=== PATIENT | female | born 1960 | race Caucasian/White ===

== ENCOUNTER 2021-08-11 12:30 | Inpatient (IN) | payer MEDICAID, MEDICARE ==
[2021-08-11] MEDS ORDERED: Ondansetron PF 4 MG/2 ML Vial ONE (13:38)
[2021-08-11 14:27] LABS: #Basophils 0.1 10x3/uL (0.0-0.2); #Monocytes 0.8 10x3/uL (0.0-1.1); #Neutrophils 6.3 10x3/uL (1.5-8.4); %Basophils 0.6 % (0.0-2.0); %Eosinophils 0.1 % (0.0-6.0); %Lymphocytes 27.7 % (18.0-47.0); %Monocytes 8.4 % (0.0-10.0); Hemoglobin 13.6 g/dL (12.0-15.5); Mean Corpuscular HGB CONC 35.2 g/dL (32.0-36.0); Mean Corpuscular Hemoglobin 33.6 pg (27.0-33.0); Mean Corpuscular Volume 95.3 fl (81.6-98.3); Mean Platelet Volume 10.1 fl (7.4-10.4); Platelet Count 373 10x3/uL (150-450); RBC Distribution Width 12.2 % (11.5-14.5); Red Blood Cell (RBC) Count 4.05 10x6/uL (3.90-5.03)
[2021-08-11 14:44] LABS: ALT (SGPT) 26 U/L (8-55); AST (SGOT) 22 U/L (5-34); Albumin 4.4 g/dL (3.4-4.8); Alkaline Phosphatase 58 U/L (40-110); Anion Gap 19 mmol/L (10-20); BUN (Urea Nitrogen) 16 mg/dL (9.8-20.1); Bilirubin, Total 0.7 mg/dL (0.2-1.2); Calc. Creatinine Clearance 0 mL/min (70-130); Calcium 9.7 mg/dL (7.8-10.44); Carbon Dioxide 21 mmol/L (23-31); Chloride 103 mmol/L (98-107); Globulin 2.9 g/dL (2.4-3.5); Glucose 103 mg/dL (80-115); Potassium 3.6 mmol/L (3.5-5.1); Protein, Total 7.3 g/dL (5.8-8.1); Sodium 139 mmol/L (136-145)
[2021-08-11 15:09] LABS: SARS-CoV-2 NAA Rapid Test Not Detected (NotDetected)
[2021-08-11 16:15] LABS: Bilirubin 1+ (Negative); Blood, Urine Negative (Negative); Clarity Clear (Clear); Glucose, Urine (Dipstick) Normal (Negative); Ketone, Urine 150 mg/dL (Negative); Leukocyte 25 (Negative); Nitrite Negative (Negative); Protein, Urine (Dipstick) 30 mg/dl (Neg-Trace)
[2021-08-11 16:33] LABS: Mucous/LPF 1+ LPF (<2+)
[2021-08-11] MEDS ORDERED: Acetaminophen 325 MG TAB PO PRN (18:11)
[2021-08-11] MEDS ORDERED: Albuterol Sulfate 2.5 mg/3 ml Neb NEB PRN ×2 (18:24→18:53)
[2021-08-11] MEDS ORDERED: Bisacodyl 10 MG SUPP PR PRN (18:24)
[2021-08-11] MEDS ORDERED: Meropenem 1 GM in Sodium Chloride 0.9% 100 ML IVPB SCH ×2 (19:00→22:00)
[2021-08-11 20:00] VITALS: BMI 33.0
[2021-08-11] MEDS: Dextrose 5 %-0.45 % NaCl 1,000 ML IV SCH (20:38)
[2021-08-11] MEDS: Atorvastatin Calcium 20 MG TAB PO SCH (20:38)
[2021-08-11] MEDS: Acetaminophen 325 MG TAB PO PRN (20:39)
[2021-08-11] MEDS ORDERED: CRANBERRY PO SCH (21:00)
[2021-08-11] MEDS ORDERED: [UNRECOGNIZED DRUG - OTHER] PO SCH (21:00)
[2021-08-11] MEDS ORDERED: ASCORBIC ACID PO SCH (21:00)
[2021-08-11] MEDS ORDERED: Melatonin 3 MG TAB PO PRN (22:28)
[2021-08-11] MEDS ORDERED: Metoprolol Tartrate 50 MG TAB PO SCH (22:30)
[2021-08-12] MEDS: traMADol HCl 50 MG TAB PO PRN ×3 (01:08→18:21)
[2021-08-12] MEDS ORDERED: Fentanyl 100 MCG/2 ML VIAL SLOW IVP SCH (02:30)
[2021-08-12] MEDS: Ondansetron PF 4 MG/2 ML Vial IVP PRN ×4 (02:31→19:15)
[2021-08-12] MEDS: Meropenem 1 GM in Sodium Chloride 0.9% 100 ML IVPB SCH ×2 (05:56→18:30)
[2021-08-12] MEDS: Acetaminophen 325 MG TAB PO PRN (06:06)
[2021-08-12 07:25] LABS: #Monocytes 0.9 10x3/uL (0.0-1.1); #Neutrophils 5.2 10x3/uL (1.5-8.4); %Basophils 0.5 % (0.0-2.0); %Eosinophils 0.3 % (0.0-6.0); %Lymphocytes 29.2 % (18.0-47.0); %Monocytes 9.9 % (0.0-10.0); %Neutrophils 59.9 % (40.0-75.0); Mean Corpuscular HGB CONC 34.9 g/dL (32.0-36.0); Mean Corpuscular Hemoglobin 33.7 pg (27.0-33.0); Mean Corpuscular Volume 96.4 fl (81.6-98.3); Mean Platelet Volume 10.1 fl (7.4-10.4); RBC Distribution Width 12.4 % (11.5-14.5); Red Blood Cell (RBC) Count 3.86 10x6/uL (3.90-5.03); White Blood Cell (WBC) Count 8.6 10x3/uL (3.5-10.5)
[2021-08-12 07:26] LABS: Platelet Count 324 10x3/uL (150-450)
[2021-08-12] MEDS: Mometasone/Formoterol 200/5 60 PUFF INH SCH ×2 (07:33→17:36)
[2021-08-12 07:43] LABS: Anion Gap 14 mmol/L (10-20); BUN (Urea Nitrogen) 10 mg/dL (9.8-20.1); Calc. Creatinine Clearance 101 mL/min (70-130); Calcium 8.8 mg/dL (7.8-10.44); Carbon Dioxide 23 mmol/L (23-31); Chloride 105 mmol/L (98-107); Glucose 122 mg/dL (80-115); Potassium 3.3 mmol/L (3.5-5.1); Sodium 139 mmol/L (136-145)
[2021-08-12] MEDS ORDERED: [UNRECOGNIZED DRUG - OTHER] PO SCH (09:00)
[2021-08-12] MEDS ORDERED: Potassium Chloride 20 MEQ TAB PO SCH (09:00)
[2021-08-12] MEDS ORDERED: GLUCOS SUL PO SCH (09:00)
[2021-08-12] MEDS ORDERED: Metoprolol Tartrate 50 MG TAB PO SCH ×2 (09:00→21:00)
[2021-08-12] MEDS ORDERED: Promethazine HCl 12.5 MG in Sodium Chloride 0.9% 50 ML IVPB PRN (09:46)
[2021-08-12] MEDS: Dextrose 5 %-0.45 % NaCl 1,000 ML IV SCH (10:02)
[2021-08-12] MEDS ORDERED: Morphine 4 MG/ML VIAL SLOW IVP PRN (10:18)
[2021-08-12] MEDS: Aspirin 81 mg Enteric Coated Tablet PO SCH (10:52)
[2021-08-12] MEDS: Metoprolol Tartrate 25 MG TAB PO SCH ×4 (10:52→22:39)
[2021-08-12] MEDS: Montelukast Sodium 10 mg Tablet PO SCH (10:52)
[2021-08-12] MEDS: Enoxaparin Sodium 30 MG/0.3 ML SYRINGE SC SCH (11:16)
[2021-08-12] MEDS ORDERED: Metoprolol Tartrate 5 MG/5 ML VIAL IVP PRN (13:05)
[2021-08-12] MEDS ORDERED: Piperacillin/Tazobactam 3.375 GM in Sodium Chloride 0.9% 100 ML IVPB SCH ×2 (16:00→18:00)
[2021-08-12] MEDS ORDERED: Ampicillin/Sulbactam 3 GM in Sodium Chloride 0.9% 100 ML IVPB SCH (17:00)
[2021-08-12] MEDS: Piperacillin/Tazobactam 3.375 GM in Sodium Chloride 0.9% 100 ML IVPB SCH (21:14)
[2021-08-12] MEDS: ALPRAZolam 0.5 MG TAB PO SCH (21:18)
[2021-08-12] MEDS: Atorvastatin Calcium 20 MG TAB PO SCH (21:18)
[2021-08-12] MEDS: traZODone HCl 50 MG TAB PO SCH (21:18)
[2021-08-12] MEDS: Pregabalin 75 MG CAP PO SCH (21:19)
[2021-08-13] MEDS: Dextrose 5 %-0.45 % NaCl 1,000 ML IV SCH ×2 (01:08→10:54)
[2021-08-13] MEDS: Piperacillin/Tazobactam 3.375 GM in Sodium Chloride 0.9% 100 ML IVPB SCH ×3 (05:11→21:57)
[2021-08-13] MEDS: ALPRAZolam 0.5 MG TAB PO SCH ×2 (07:51→22:00)
[2021-08-13] MEDS: Enoxaparin Sodium 30 MG/0.3 ML SYRINGE SC SCH (07:51)
[2021-08-13] MEDS: Fish Oil 1,000 MG CAP PO SCH (07:51)
[2021-08-13] MEDS: Metoprolol Tartrate 25 MG TAB PO SCH ×2 (07:52→22:07)
[2021-08-13] MEDS: traZODone HCl 50 MG TAB PO SCH ×2 (07:52→23:00)
[2021-08-13] MEDS: Aspirin 81 mg Enteric Coated Tablet PO SCH (07:53)
[2021-08-13] MEDS: Montelukast Sodium 10 mg Tablet PO SCH (07:53)
[2021-08-13] MEDS: Mometasone/Formoterol 200/5 60 PUFF INH SCH ×2 (07:53→19:41)
[2021-08-13] MEDS ORDERED: hydrALAZINE 20 MG/ML VIAL SLOW IVP PRN (07:54)
[2021-08-13] MEDS: Polyethylene Glycol 3350 17 GM Packet PO PRN (07:58)
[2021-08-13] MEDS: traMADol HCl 50 MG TAB PO PRN (10:44)
[2021-08-13] MEDS: Acetaminophen 325 MG TAB PO PRN ×2 (14:24→22:15)
[2021-08-13] MEDS: Pregabalin 75 MG CAP PO SCH (22:00)
[2021-08-13] MEDS: Atorvastatin Calcium 20 MG TAB PO SCH (22:07)
[2021-08-14] MEDS: Piperacillin/Tazobactam 3.375 GM in Sodium Chloride 0.9% 100 ML IVPB SCH ×3 (05:10→20:35)
[2021-08-14] MEDS: Mometasone/Formoterol 200/5 60 PUFF INH SCH ×2 (08:15→19:06)
[2021-08-14] MEDS: Fish Oil 1,000 MG CAP PO SCH (08:53)
[2021-08-14] MEDS: traMADol HCl 50 MG TAB PO PRN ×2 (08:53→18:33)
[2021-08-14] MEDS: Aspirin 81 mg Enteric Coated Tablet PO SCH (08:54)
[2021-08-14] MEDS: Montelukast Sodium 10 mg Tablet PO SCH (08:54)
[2021-08-14] MEDS: ALPRAZolam 0.5 MG TAB PO SCH ×2 (08:54→20:37)
[2021-08-14] MEDS: Enoxaparin Sodium 30 MG/0.3 ML SYRINGE SC SCH (08:55)
[2021-08-14] MEDS: Metoprolol Tartrate 25 MG TAB PO SCH ×2 (08:55→20:40)
[2021-08-14] MEDS: traZODone HCl 50 MG TAB PO SCH ×2 (08:57→20:38)
[2021-08-14] MEDS: Polyethylene Glycol 3350 17 GM Packet PO PRN (10:58)
[2021-08-14] MEDS: Atorvastatin Calcium 20 MG TAB PO SCH (20:37)
[2021-08-14] MEDS: Pregabalin 75 MG CAP PO SCH (21:00)
[2021-08-15] MEDS: Piperacillin/Tazobactam 3.375 GM in Sodium Chloride 0.9% 100 ML IVPB SCH ×3 (04:55→20:15)
[2021-08-15 06:34] LABS: Potassium 3.5 mmol/L (3.5-5.1)
[2021-08-15] MEDS: Enoxaparin Sodium 40 MG/0.4 ML SYRINGE SC SCH (07:46)
[2021-08-15] MEDS: Montelukast Sodium 10 mg Tablet PO SCH (07:47)
[2021-08-15] MEDS: Fish Oil 1,000 MG CAP PO SCH (07:47)
[2021-08-15] MEDS: traMADol HCl 50 MG TAB PO PRN ×3 (07:47→20:48)
[2021-08-15] MEDS: ALPRAZolam 0.5 MG TAB PO SCH ×2 (07:47→20:13)
[2021-08-15] MEDS: traZODone HCl 50 MG TAB PO SCH ×2 (07:48→20:18)
[2021-08-15] MEDS: Metoprolol Tartrate 25 MG TAB PO SCH ×2 (07:48→20:13)
[2021-08-15] MEDS: Aspirin 81 mg Enteric Coated Tablet PO SCH (07:49)
[2021-08-15] MEDS: Mometasone/Formoterol 200/5 60 PUFF INH SCH ×2 (08:10→18:36)
[2021-08-15] MEDS: Atorvastatin Calcium 20 MG TAB PO SCH (20:14)
[2021-08-15] MEDS: Pregabalin 75 MG CAP PO SCH (20:18)
[2021-08-16] MEDS: Piperacillin/Tazobactam 3.375 GM in Sodium Chloride 0.9% 100 ML IVPB SCH ×3 (04:00→20:10)
[2021-08-16] MEDS: traMADol HCl 50 MG TAB PO PRN ×3 (04:14→20:11)
[2021-08-16] MEDS: Mometasone/Formoterol 200/5 60 PUFF INH SCH ×2 (08:40→18:33)
[2021-08-16] MEDS: Fish Oil 1,000 MG CAP PO SCH (08:49)
[2021-08-16] MEDS: traZODone HCl 50 MG TAB PO SCH ×2 (08:49→20:12)
[2021-08-16] MEDS: Montelukast Sodium 10 mg Tablet PO SCH (08:50)
[2021-08-16] MEDS: Aspirin 81 mg Enteric Coated Tablet PO SCH (08:52)
[2021-08-16] MEDS: ALPRAZolam 0.5 MG TAB PO SCH ×2 (08:52→20:11)
[2021-08-16] MEDS: Metoprolol Tartrate 25 MG TAB PO SCH ×2 (08:52→20:11)
[2021-08-16] MEDS: Enoxaparin Sodium 40 MG/0.4 ML SYRINGE SC SCH (08:52)
[2021-08-16] MEDS: Polyethylene Glycol 3350 17 GM Packet PO PRN (09:36)
[2021-08-16] MEDS: Acetaminophen 325 MG TAB PO PRN (14:48)
[2021-08-16] MEDS: Pregabalin 75 MG CAP PO SCH (20:10)
[2021-08-16] MEDS: Atorvastatin Calcium 20 MG TAB PO SCH (20:11)
[2021-08-17 04:43] LABS: Anion Gap 12 mmol/L (10-20); BUN (Urea Nitrogen) 6 mg/dL (9.8-20.1); Calc. Creatinine Clearance 116 mL/min (70-130); Calcium 8.9 mg/dL (7.8-10.44); Carbon Dioxide 24 mmol/L (23-31); Chloride 110 mmol/L (98-107); Glucose 108 mg/dL (80-115); Potassium 3.5 mmol/L (3.5-5.1); Sodium 142 mmol/L (136-145)
[2021-08-17] MEDS: Piperacillin/Tazobactam 3.375 GM in Sodium Chloride 0.9% 100 ML IVPB SCH ×2 (04:55→12:06)
[2021-08-17] MEDS: Mometasone/Formoterol 200/5 60 PUFF INH SCH (07:29)
[2021-08-17] MEDS: Montelukast Sodium 10 mg Tablet PO SCH (09:16)
[2021-08-17] MEDS: Metoprolol Tartrate 25 MG TAB PO SCH (09:16)
[2021-08-17] MEDS: ALPRAZolam 0.5 MG TAB PO SCH (09:16)
[2021-08-17] MEDS: Enoxaparin Sodium 40 MG/0.4 ML SYRINGE SC SCH (09:16)
[2021-08-17] MEDS: traZODone HCl 50 MG TAB PO SCH (09:17)
[2021-08-17] MEDS: Acetaminophen 325 MG TAB PO PRN ×2 (09:17→16:09)
[2021-08-17] MEDS: Fish Oil 1,000 MG CAP PO SCH (09:17)
[2021-08-17] MEDS: Aspirin 81 mg Enteric Coated Tablet PO SCH (09:17)
[2021-08-17] MEDS: traMADol HCl 50 MG TAB PO PRN ×2 (09:18→16:10)
[2021-08-17] MEDS: Polyethylene Glycol 3350 17 GM Packet PO PRN (12:07)
[2021-08-17 16:38] VITALS: BP 144/68; TEMP 97.1
== END 2021-08-17 18:56 | disposition home health service (06) | DRG 690 ==
LOC: CSHERS 12:30 → CSHTELE 18:27
PROVIDERS: ADMIT Internal Medicine; ATTEND Internal Medicine
DX: N39.0 Urinary tract infection, site not specified (principal); E44.1 Mild protein-calorie malnutrition; Z20.822 Contact with and (suspected) exposure to COVID-19; I25.10 Atherosclerotic heart disease of native coronary artery without angina pectoris; M19.90 Unspecified osteoarthritis, unspecified site; J45.30 Mild persistent asthma, uncomplicated; I10 Essential (primary) hypertension; G89.29 Other chronic pain; K21.9 Gastro-esophageal reflux disease without esophagitis; R29.6 Repeated falls; F32.A Depression, unspecified; G47.00 Insomnia, unspecified; F41.9 Anxiety disorder, unspecified; F12.90 Cannabis use, unspecified, uncomplicated; Z71.51 Drug abuse counseling and surveillance of drug abuser; Z79.899 Other long term (current) drug therapy; Z79.82 Long term (current) use of aspirin; Z79.891 Long term (current) use of opiate analgesic; Z79.52 Long term (current) use of systemic steroids; Z90.49 Acquired absence of other specified parts of digestive tract; Z68.33 Body mass index [BMI] 33.0-33.9, adult
CPT/HCPCS: 36415; 70450; 71045; 80048; 80053; 81003; 81015; 84132; 84484; 85025; 87086; 93005; 94664; 94760; 96374; J1650; J2185; J2405; J2543; J2550; J3010; J3490; J7042; U0002

== ENCOUNTER 2023-12-22 10:07 | Day surgery (SDC) | payer MEDICARE ==
[2023-12-18 13:33] VITALS: BMI 33.2
[2023-12-22] MEDS ORDERED: PROPOFOL 20 ML ONE ×3 (12:52→13:50)
[2023-12-22] MEDS ORDERED: Lidocaine 1% PF 5 ML VIAL ONE (12:53)
[2023-12-22] MEDS ORDERED: PHENYLEPHRINE-NS 100 MCG/ML 10 ML SYRINGE ONE (13:17)
== END 2023-12-22 14:30 | disposition home or self-care (01) ==
LOC: CSHSDC 10:07
PROVIDERS: ATTEND Internal Medicine Gastroenterology
PROC: 0DBN8ZZ Excision of Sigmoid Colon, Via Natural or Artificial Opening Endoscopic (ICD-10-PCS; principal; 2023-12-22)
DX: Z12.11 Encounter for screening for malignant neoplasm of colon (principal); K63.5 Polyp of colon; K57.30 Diverticulosis of large intestine without perforation or abscess without bleeding; K64.9 Unspecified hemorrhoids; E78.00 Pure hypercholesterolemia, unspecified; I10 Essential (primary) hypertension; I25.10 Atherosclerotic heart disease of native coronary artery without angina pectoris; M19.90 Unspecified osteoarthritis, unspecified site; J44.9 Chronic obstructive pulmonary disease, unspecified; F41.9 Anxiety disorder, unspecified; F32.A Depression, unspecified; Z79.51 Long term (current) use of inhaled steroids; Z79.899 Other long term (current) drug therapy
CPT/HCPCS: 45380; J2704; 88305